=== PATIENT | female | born 1990 ===

== ENCOUNTER 2019-02-11 14:16 | Emergency (ER) | payer OTHER, BC ==
[~2019-02-11] VITALS: Ht 160 cm; Wt 61.2 kg
== END 2019-02-11 17:08 | disposition home or self-care (01) ==
LOC: ER 14:16
DX: G43.909 Migraine, unspecified, not intractable, without status migrainosus (principal); V43.52XA Car driver injured in collision with other type car in traffic accident, initial encounter; F17.210 Nicotine dependence, cigarettes, uncomplicated
CPT/HCPCS: 36415; 70450; 72125; 96374; 96375; 99284-25; J0780; J1100; J1200; J1885